=== PATIENT | female | born 1990 | race Caucasian/White ===

== ENCOUNTER → 2017-04-30 | Outpatient (REF) | payer MEDICAID ==
[2017-04-30 14:07] LABS: APPEARANCE, URINE CLEAR (CLEAR); BACTERIA, URINE AUTO NEGATIVE (NEGATIVE); BILIRUBIN, URINE AUTO NEGATIVE (NEGATIVE); BLOOD, URINE BLOOD NEGATIVE (NEGATIVE); COLOR, URINE YELLOW (YELLOW); GLUCOSE, URINE (UA) AUTO NEGATIVE (NEGATIVE); KETONE, URINE AUTO NEGATIVE (NEGATIVE); LEUKOCYTE ESTERASE, URINE AUTO NEGATIVE (NEGATIVE); MUCUS, URINE SMALL (NEGATIVE); NITRITE, URINE AUTO NEGATIVE (NEGATIVE); PROTEIN, URINE AUTO NEGATIVE (NEGATIVE); RBC, URINE AUTO 0 /HPF (0-3); SQUAMOUS EPITHELIAL CELL UR AU 1 /HPF (0-6); UROBILINOGEN, URINE AUTO 0.2 mg/dL (0.0-2.0); WBC, URINE AUTO 0 /HPF (0-3)
== END ==
LOC: M LAB REF 13:46
DX: N39.0 Urinary tract infection, site not specified (principal)

== ENCOUNTER 2017-07-01 21:03 | Emergency (ER) | payer OTHER, MEDICAID ==
[2017-07-02] MEDS ORDERED: ISOVUE-370 76% 100ML VIAL (Q9967) As Ordered (00:50)
[2017-07-02] MEDS: ONDANSETRON 4MG/2ML VIAL (J2405) IV (00:53)
[2017-07-02 00:54] LABS: BASO % 0.5 % (0.0-1.0); EOS # 0.3 10^3/uL (0.0-0.50); HEMATOCRIT 42.6 % (36.0-47.0); HEMOGLOBIN 14.2 g/dl (12.0-15.5); IMMATURE GRANULOCYTE % 0.4 % (0-3.0); LYMPH # 2.5 10^3/uL (1.5-6.5); LYMPH % 29.5 % (24.0-44.0); MEAN CORPUSCULAR HEMOGLOBIN 30.5 pg (27.0-33.0); MEAN CORPUSCULAR HGB CONC 33.3 g/dl (32.0-36.5); MEAN CORPUSCULAR VOLUME 91.4 fl (80.0-96.0); MONO % 11.1 % (0.0-5.0); NEUTROPHILS # 4.7 10^3/uL (1.8-7.7); NEUTROPHILS % 54.5 % (36.0-66.0); PLATELET COUNT, AUTOMATED 311 10^3/uL (150-450); RED BLOOD COUNT 4.66 10^6/uL (4.00-5.40); RED CELL DISTRIBUTION WIDTH 12.1 % (11.5-14.5); WHITE BLOOD COUNT 8.6 10^3/uL (4.0-10.0)
[2017-07-02] MEDS: MORPHINE 4 MG/ML 1ML VIAL/SYRINGE (J2270) IV ×2 (00:54→02:12)
[2017-07-02 01:08] LABS: INR 0.85; PROTHROMBIN TIME 11.7 SECONDS (12.4-14.5)
[2017-07-02 01:41] LABS: ALBUMIN 3.8 GM/DL (3.2-5.2); ALBUMIN/GLOBULIN RATIO 0.93 (1.00-1.93); ALKALINE PHOSPHATASE 70 U/L (45-117); ALT/SGPT 16 U/L (12-78); ANION GAP 5 MEQ/L (8-16); AST/SGOT 15 U/L (7-37); BILIRUBIN,DIRECT < 0.1 MG/DL (0.0-0.2); BILIRUBIN,TOTAL 0.3 MG/DL (0.2-1.0); BLOOD UREA NITROGEN 13 MG/DL (7-18); CALCIUM LEVEL 8.8 MG/DL (8.5-10.1); CARBON DIOXIDE LEVEL 28 MEQ/L (21-32); CHLORIDE LEVEL 107 MEQ/L (98-107); CREATININE FOR GFR 0.82 MG/DL (0.55-1.30); GLOMERULAR FILTRATION RATE > 60.0 (>60); GLUCOSE, FASTING 97 MG/DL (70-100); LIPASE 109 U/L (73-393); POTASSIUM SERUM 4.3 MEQ/L (3.5-5.1); SODIUM LEVEL 140 MEQ/L (136-145); TOTAL PROTEIN 7.9 GM/DL (6.4-8.2)
[2017-07-02] MEDS: NORCO 5/325MG TABLET (BULK FOR ED) PO (03:30)
== END 2017-07-02 03:51 | disposition home or self-care (01) ==
LOC: M ED 21:03
DX: S20.229A Contusion of unspecified back wall of thorax, initial encounter (principal); R10.812 Left upper quadrant abdominal tenderness; W10.8XXA Fall (on) (from) other stairs and steps, initial encounter; Y92.89 Other specified places as the place of occurrence of the external cause; Z79.899 Other long term (current) drug therapy
CPT/HCPCS: J2270

== ENCOUNTER → 2017-07-18 | Outpatient (CLI) | payer MEDICAID | LOC: M OUTALCOH 11:01 | DX: Z13.9 Encounter for screening, unspecified (principal); F11.10 Opioid abuse, uncomplicated ==

== ENCOUNTER 2017-07-31 10:30 | Outpatient (RCR) | payer MEDICAID | END 2017-08-01 | LOC: M OUTALCOH 10:30 | DX: Z03.89 Encounter for observation for other suspected diseases and conditions ruled out (principal) ==

== ENCOUNTER → 2017-09-10 | Outpatient (REF) | payer MEDICAID ==
[2017-09-10 17:49] LABS: APPEARANCE, URINE CLEAR (CLEAR); BACTERIA, URINE AUTO NEGATIVE (NEGATIVE); BILIRUBIN, URINE AUTO NEGATIVE (NEGATIVE); BLOOD, URINE BLOOD NEGATIVE (NEGATIVE); COLOR, URINE STRAW (YELLOW); GLUCOSE, URINE (UA) AUTO NEGATIVE (NEGATIVE); KETONE, URINE AUTO NEGATIVE (NEGATIVE); LEUKOCYTE ESTERASE, URINE AUTO NEGATIVE (NEGATIVE); NITRITE, URINE AUTO NEGATIVE (NEGATIVE); PROTEIN, URINE AUTO NEGATIVE (NEGATIVE); RBC, URINE AUTO 0 /HPF (0-3); SPECIFIC GRAVITY URINE AUTO 1.015 (1.002-1.035); SQUAMOUS EPITHELIAL CELL UR AU 0 /HPF (0-6); UROBILINOGEN, URINE AUTO 0.2 mg/dL (0.0-2.0); WBC, URINE AUTO 0 /HPF (0-3)
== END ==
LOC: M LAB REF 17:19
DX: N39.0 Urinary tract infection, site not specified (principal)
CPT/HCPCS: 81001

== ENCOUNTER → 2017-10-11 | Outpatient (REF) | payer MEDICAID ==
[2017-10-11 20:58] LABS: APPEARANCE, URINE CLEAR (CLEAR); BACTERIA, URINE AUTO NEGATIVE (NEGATIVE); BILIRUBIN, URINE AUTO NEGATIVE (NEGATIVE); BLOOD, URINE BLOOD NEGATIVE (NEGATIVE); COLOR, URINE YELLOW (YELLOW); GLUCOSE, URINE (UA) AUTO NEGATIVE (NEGATIVE); KETONE, URINE AUTO NEGATIVE (NEGATIVE); LEUKOCYTE ESTERASE, URINE AUTO NEGATIVE (NEGATIVE); NITRITE, URINE AUTO NEGATIVE (NEGATIVE); PROTEIN, URINE AUTO NEGATIVE (NEGATIVE); RBC, URINE AUTO 3 /HPF (0-3); SPECIFIC GRAVITY URINE AUTO 1.024 (1.002-1.035); SQUAMOUS EPITHELIAL CELL UR AU 0 /HPF (0-6); UROBILINOGEN, URINE AUTO 0.2 mg/dL (0.0-2.0); WBC, URINE AUTO 1 /HPF (0-3)
== END ==
LOC: M LAB REF 17:03
DX: N39.0 Urinary tract infection, site not specified (principal)

== ENCOUNTER → 2018-01-08 | Outpatient (REF) | payer MEDICAID ==
[2018-01-08 17:54] LABS: AMORPHOUS SEDIMENT MODERATE (NEGATIVE); APPEARANCE, URINE HAZY (CLEAR); BACTERIA, URINE AUTO NEGATIVE (NEGATIVE); BILIRUBIN, URINE AUTO NEGATIVE (NEGATIVE); BLOOD, URINE BLOOD NEGATIVE (NEGATIVE); COLOR, URINE YELLOW (YELLOW); GLUCOSE, URINE (UA) AUTO NEGATIVE (NEGATIVE); KETONE, URINE AUTO NEGATIVE (NEGATIVE); LEUKOCYTE ESTERASE, URINE AUTO NEGATIVE (NEGATIVE); NITRITE, URINE AUTO NEGATIVE (NEGATIVE); PROTEIN, URINE AUTO NEGATIVE (NEGATIVE); RBC, URINE AUTO 2 /HPF (0-3); SPECIFIC GRAVITY URINE AUTO 1.015 (1.002-1.035); SQUAMOUS EPITHELIAL CELL UR AU 0 /HPF (0-6); UROBILINOGEN, URINE AUTO 0.2 mg/dL (0.0-2.0); WBC, URINE AUTO 1 /HPF (0-3)
== END ==
LOC: M LAB REF 16:51
DX: N39.0 Urinary tract infection, site not specified (principal)

== ENCOUNTER → 2018-08-04 | Outpatient (REF) | payer MEDICAID ==
[~2018-08-04] MED LIST: CETI10TA; DOCU5LIQ PO; FLEX5TAB3 PO; FLIN1CHW3 PO; GABA-845; IBUP-1114 PO; IBUP600T26 PO; MAPA500T17 PO; MAPA500T2 PO; MEDR150I10; MOM30SS PO; NAPR-837 PO; PERC5TAB12 PO; VICO5TAB PO; VITAPRTA PO; [UNRECOGNIZED DRUG - CODE]
[2018-08-05 00:16] LABS: CHLAMYDIA DNA AMPLIFICATION NEGATIVE (NEGATIVE); GC DNA AMPLIFICATION NEGATIVE (NEGATIVE)
== END ==
LOC: M LAB REF 10:10
PROVIDERS: ATTEND Physician Assistant Medical
DX: R30.0 Dysuria (principal)

== ENCOUNTER → 2018-11-04 | Outpatient (REF) | payer OTHER ==
[2018-11-04 17:05] LABS: URINE PREG TEST NEGATIVE (NEGATIVE)
[2018-11-04 19:56] LABS: CHLAMYDIA DNA AMPLIFICATION NEGATIVE (NEGATIVE); GC DNA AMPLIFICATION NEGATIVE (NEGATIVE)
== END ==
LOC: M LAB REF 16:22
PROVIDERS: ATTEND Physician Assistant Medical
DX: Z34.80 Encounter for supervision of other normal pregnancy, unspecified trimester (principal)

== ENCOUNTER → 2018-12-13 | Outpatient (REF) | payer OTHER ==
[2018-12-17 14:03] LABS: APPEARANCE, URINE CLEAR (CLEAR); BILIRUBIN, URINE AUTO NEGATIVE (NEGATIVE); COLOR, URINE YELLOW (YELLOW); GLUCOSE, URINE (UA) AUTO NEGATIVE (NEGATIVE); KETONE, URINE AUTO NEGATIVE (NEGATIVE); NITRITE, URINE AUTO NEGATIVE (NEGATIVE); PROTEIN, URINE AUTO NEGATIVE (NEGATIVE); UROBILINOGEN, URINE AUTO 0.2 mg/dL (0.0-2.0)
[2018-12-17 14:04] LABS: BACTERIA, URINE AUTO N (NEGATIVE); BLOOD, URINE BLOOD NEGATIVE (NEGATIVE); LEUKOCYTE ESTERASE, URINE AUTO NEGATIVE (NEGATIVE); MUCUS, URINE SMALL (NEGATIVE); RBC, URINE AUTO 1 /HPF (0-3); SQUAMOUS EPITHELIAL CELL UR AU 1 /HPF (0-6); WBC, URINE AUTO 0 /HPF (0-3)
[2018-12-17 14:44] LABS: CHLAMYDIA DNA AMPLIFICATION NEGATIVE (NEGATIVE); GC DNA AMPLIFICATION NEGATIVE (NEGATIVE)
== END ==
LOC: M LAB REF 13:46
PROVIDERS: ATTEND Physician Assistant Medical
DX: N39.0 Urinary tract infection, site not specified (principal)

== ENCOUNTER → 2019-03-11 | Outpatient (REF) | payer OTHER ==
[2019-03-11 13:54] LABS: BASO # 0.1 10^3/uL (0.0-0.2); BASO % 0.9 % (0.0-1.0); EOS # 0.2 10^3/uL (0.0-0.5); EOS % 3.6 % (0.0-3.0); HEMATOCRIT 42.9 % (36.0-47.0); HEMOGLOBIN 13.9 g/dl (12.0-15.5); LYMPH # 1.8 10^3/uL (1.5-5.0); LYMPH % 32.7 % (24.0-44.0); MEAN CORPUSCULAR HEMOGLOBIN 30.5 pg (27.0-33.0); MEAN CORPUSCULAR HGB CONC 32.4 g/dl (32.0-36.5); MEAN CORPUSCULAR VOLUME 94.3 fl (80.0-96.0); MONO # 0.5 10^3/uL (0.0-0.8); MONO % 9.4 % (0.0-5.0); NEUTROPHILS # 2.9 10^3/uL (1.5-8.5); NEUTROPHILS % 53.2 % (36.0-66.0); PLATELET COUNT, AUTOMATED 287 10^3/uL (150-450); RED BLOOD COUNT 4.55 10^6/uL (4.00-5.40); WHITE BLOOD COUNT 5.5 10^3/uL (4.0-10.0)
[2019-03-11 14:14] LABS: ALBUMIN 3.9 GM/DL (3.2-5.2); ALT/SGPT 14 U/L (12-78); BILIRUBIN,TOTAL 0.3 MG/DL (0.2-1.0); BLOOD UREA NITROGEN 11 MG/DL (7-18); CALCIUM LEVEL 9.2 MG/DL (8.5-10.1); CARBON DIOXIDE LEVEL 29 MEQ/L (21-32); CHLORIDE LEVEL 104 MEQ/L (98-107); CREATININE FOR GFR 0.88 MG/DL (0.55-1.30); FOLATE 12.7 NG/ML; GLOMERULAR FILTRATION RATE > 60.0 (>60); GLUCOSE, FASTING 110 MG/DL (70-100); POTASSIUM SERUM 4.3 MEQ/L (3.5-5.1); RHEUMATOID FACTOR QUANT < 10.0 IU/ML (<15.0); SODIUM LEVEL 139 MEQ/L (136-145); TOTAL 25(OH) VITAMIN D 45.8 NG/ML (30.0-100.0); TOTAL PROTEIN 7.4 GM/DL (6.4-8.2); VITAMIN B12 LEVEL 1024 PG/ML
[2019-03-11 14:26] LABS: ERYTHROCYTE SEDIMENTATION RATE 4 mm/hr (0-20)
[2019-03-11 14:39] LABS: HEMOGLOBIN A1c 5.2 %
== END ==
LOC: M LAB REF 12:56 → M LABNEURO 12:56
PROVIDERS: ATTEND Psychiatry & Neurology Neurology
DX: G62.9 Polyneuropathy, unspecified (principal); R51 Headache

== ENCOUNTER → 2019-03-18 | Outpatient (REF) | payer OTHER ==
[2019-03-18 13:52] LABS: URINE PREG TEST NEGATIVE (NEGATIVE)
[2019-03-18 14:07] LABS: APPEARANCE, URINE CLEAR (CLEAR); BACTERIA, URINE AUTO NEGATIVE (NEGATIVE); BILIRUBIN, URINE AUTO NEGATIVE (NEGATIVE); BLOOD, URINE BLOOD NEGATIVE (NEGATIVE); COLOR, URINE YELLOW (YELLOW); GLUCOSE, URINE (UA) AUTO NEGATIVE (NEGATIVE); KETONE, URINE AUTO NEGATIVE (NEGATIVE); LEUKOCYTE ESTERASE, URINE AUTO NEGATIVE (NEGATIVE); MUCUS, URINE SMALL (NEGATIVE); NITRITE, URINE AUTO NEGATIVE (NEGATIVE); PROTEIN, URINE AUTO NEGATIVE (NEGATIVE); RBC, URINE AUTO 1 /HPF (0-3); SPECIFIC GRAVITY URINE AUTO 1.017 (1.002-1.035); SQUAMOUS EPITHELIAL CELL UR AU 0 /HPF (0-6); UROBILINOGEN, URINE AUTO 0.2 mg/dL (0.0-2.0); WBC, URINE AUTO 0 /HPF (0-3)
== END ==
LOC: M LAB REF 13:09
PROVIDERS: ATTEND Physician Assistant
DX: N39.0 Urinary tract infection, site not specified (principal)

== ENCOUNTER → 2019-03-24 | Outpatient (REF) | payer OTHER ==
[2019-03-24 16:02] LABS: CHLAMYDIA DNA AMPLIFICATION NEGATIVE (NEGATIVE); GC DNA AMPLIFICATION NEGATIVE (NEGATIVE)
== END ==
LOC: M LAB REF 14:25
PROVIDERS: ATTEND Physician Assistant Medical
DX: N89.8 Other specified noninflammatory disorders of vagina (principal)

== ENCOUNTER → 2019-04-28 | Outpatient (CLI) | payer OTHER | LOC: M PLALAB 12:52 | PROVIDERS: ATTEND Physician Assistant | DX: Z00.00 Encounter for general adult medical examination without abnormal findings (principal); R63.5 Abnormal weight gain; B37.9 Candidiasis, unspecified; Z20.2 Contact with and (suspected) exposure to infections with a predominantly sexual mode of transmission ==

== ENCOUNTER → 2019-04-28 | Outpatient (REF) | payer OTHER ==
[2019-04-28 18:30] LABS: APPEARANCE, URINE CLEAR (CLEAR); BACTERIA, URINE AUTO NEGATIVE (NEGATIVE); BILIRUBIN, URINE AUTO NEGATIVE (NEGATIVE); BLOOD, URINE BLOOD 2+ (NEGATIVE); COLOR, URINE YELLOW (YELLOW); GLUCOSE, URINE (UA) AUTO NEGATIVE (NEGATIVE); KETONE, URINE AUTO NEGATIVE (NEGATIVE); LEUKOCYTE ESTERASE, URINE AUTO NEGATIVE (NEGATIVE); MUCUS, URINE SMALL (NEGATIVE); NITRITE, URINE AUTO NEGATIVE (NEGATIVE); PROTEIN, URINE AUTO NEGATIVE (NEGATIVE); RBC, URINE AUTO 21 /HPF (0-3); SPECIFIC GRAVITY URINE AUTO 1.016 (1.002-1.035); SQUAMOUS EPITHELIAL CELL UR AU 1 /HPF (0-6); UROBILINOGEN, URINE AUTO 0.2 mg/dL (0.0-2.0); WBC, URINE AUTO 0 /HPF (0-3)
[2019-04-28 19:11] LABS: ALT/SGPT 18 U/L (12-78); BILIRUBIN,TOTAL 0.3 MG/DL (0.2-1.0); BLOOD UREA NITROGEN 12 MG/DL (7-18); CALCIUM LEVEL 9.1 MG/DL (8.5-10.1); CARBON DIOXIDE LEVEL 30 MEQ/L (21-32); CHLORIDE LEVEL 102 MEQ/L (98-107); CREATININE FOR GFR 0.73 MG/DL (0.55-1.30); FREE T4 0.95 NG/DL (0.76-1.46); GLOMERULAR FILTRATION RATE > 60.0 (>60); GLUCOSE, FASTING 88 MG/DL (70-100); POTASSIUM SERUM 4.3 MEQ/L (3.5-5.1); SODIUM LEVEL 137 MEQ/L (136-145); THYROID STIMULATING HORMONE 0.896 uIU/ML (0.358-3.740); TOTAL 25(OH) VITAMIN D 47.2 NG/ML (30.0-100.0)
[2019-04-28 19:26] LABS: HEMOGLOBIN A1c 5.5 %
[2019-04-29 05:05] LABS: CHLAMYDIA DNA AMPLIFICATION NEGATIVE (NEGATIVE); GC DNA AMPLIFICATION NEGATIVE (NEGATIVE)
[2019-04-29 11:48] LABS: HIV 1&2 SCREEN CENTAUR NEGATIVE (NEGATIVE)
[2019-05-01 00:07] LABS: HSV IgM TYPES 1&2 1.27 Ratio (0.00-0.90)
== END ==
LOC: M SFHCPLAZ 12:21
PROVIDERS: ATTEND Physician Assistant
DX: Z00.00 Encounter for general adult medical examination without abnormal findings (principal); R63.5 Abnormal weight gain; B37.9 Candidiasis, unspecified; Z20.2 Contact with and (suspected) exposure to infections with a predominantly sexual mode of transmission

== ENCOUNTER → 2019-05-15 | Outpatient (REF) | payer OTHER ==
[2019-05-15 16:55] LABS: APPEARANCE, URINE CLEAR (CLEAR); BILIRUBIN, URINE AUTO NEGATIVE (NEGATIVE); BLOOD, URINE BLOOD NEGATIVE (NEGATIVE); COLOR, URINE YELLOW (YELLOW); GLUCOSE, URINE (UA) AUTO NEGATIVE (NEGATIVE); KETONE, URINE AUTO NEGATIVE (NEGATIVE); LEUKOCYTE ESTERASE, URINE AUTO NEGATIVE (NEGATIVE); NITRITE, URINE AUTO NEGATIVE (NEGATIVE); PROTEIN, URINE AUTO NEGATIVE (NEGATIVE); SPECIFIC GRAVITY URINE AUTO 1.023 (1.002-1.035)
[2019-05-15 16:57] LABS: BACTERIA, URINE AUTO NEGATIVE (NEGATIVE); MUCUS, URINE SMALL (NEGATIVE); RBC, URINE AUTO 2 /HPF (0-3); SQUAMOUS EPITHELIAL CELL UR AU 0 /HPF (0-6); WBC, URINE AUTO 0 /HPF (0-3)
== END ==
LOC: M LAB REF 16:34
PROVIDERS: ATTEND Physician Assistant Medical
DX: N39.0 Urinary tract infection, site not specified (principal)

== ENCOUNTER → 2019-06-11 | Outpatient (REF) | payer OTHER | LOC: M LAB REF 12:10 | PROVIDERS: ATTEND Physician Assistant | DX: N39.0 Urinary tract infection, site not specified (principal); N91.2 Amenorrhea, unspecified ==

== ENCOUNTER → 2019-07-16 | Outpatient (REF) | payer OTHER | LOC: M LAB REF 13:44 | PROVIDERS: ATTEND Physician Assistant | DX: R30.0 Dysuria (principal) ==

== ENCOUNTER → 2019-07-22 | Outpatient (REF) | payer OTHER ==
[2019-07-22 20:47] LABS: CHLAMYDIA DNA AMPLIFICATION NEGATIVE (NEGATIVE); GC DNA AMPLIFICATION NEGATIVE (NEGATIVE)
== END ==
LOC: M SFHCWAGY 17:27
PROVIDERS: ATTEND Advanced Practice Midwife
DX: Z12.4 Encounter for screening for malignant neoplasm of cervix (principal); Z11.3 Encounter for screening for infections with a predominantly sexual mode of transmission

== ENCOUNTER → 2019-07-23 | Outpatient (CLI) | payer OTHER ==
--- NOTE | 2019-07-24 02:30 | REP ---
Clinical: Pelvic pain. . Technique: Transabdominal pelvic ultrasound with color flow evaluation of the ovaries. Findings: Bladder is partially collapsed and under distended Normal anteverted uterus measures 8.8 x 4.7 x 5.2 cm . The endometrial complex measures 8.6 mm thickness. No discrete uterine or endometrial abnormalities are appreciated. Bilateral ovaries are normal in appearance and vascularity without evidence for torsion. Right ovary measures 2.5 x 1.1 x 2.5 cm ; Left ovary measures 3.6 x 1.7 x 2.8 cm. No pelvic fluid or adnexal mass lesion . Impression: 1. normal pelvic ultrasound
== END ==
LOC: M WHC 11:00
PROVIDERS: ATTEND Advanced Practice Midwife
DX: R10.2 Pelvic and perineal pain (principal)

== ENCOUNTER → 2019-08-26 | Outpatient (CLI) | payer OTHER ==
--- NOTE | 2019-08-28 01:16 | ECWPNPC ---
PATIENT NAME: ANTOLIN ADAMSON : 1990 GENDER: FEMALE VISIT DATE: 08/26/2019 DISCHARGE DATE: 08/26/19 1120 VISIT LOCKED DATE TIME: PHYSICIAN: ESTELLE JARAMILLO RESOURCE: ESTELLE JARAMILLO REASON FOR APPOINTMENT 1. NECK HISTORY OF PRESENT ILLNESS DEPRESSION SCREENING: PHQ-2 (2015 EDITION) LITTLE INTEREST OR PLEASURE IN DOING THINGS?NOT AT ALL FEELING DOWN, DEPRESSED, OR HOPELESS?NOT AT ALL TOTAL SCORE0 GENERAL: -28-YEAR-OLD FEMALE IN FOR INITIAL PAIN CONSULT. SHE RATES HER PAIN CURRENTLY AT A 10 OUT OF 10 AND DESCRIBES IT CONTINUOUS AND SHARP. THE PAIN IS LOCATED IN THE FACE, HEAD, NECK, RIGHT SHOULDER, AND RIGHT UPPER EXTREMITY. PATIENT DOES ADMIT TO USE OF GABAPENTIN TO HELP MANAGE HER SYMPTOMS HOWEVER SHE EXPERIENCED WEIGHT GAIN WITH THIS AND TAPERED HERSELF OFF THIS MEDICATION. SHE HAS A REFERRAL IN FOR RHEUMATOLOGY HOWEVER SHE HAS NOT MADE AN APPOINTMENT YET. SHE ALSO HAS A REFERRAL IN FOR PHYSICAL THERAPY IN HAS YET TO MAKE AN APPOINTMENT FOR THIS. FALL RISK SCREENING: SCREENING :NO FALLS REPORTED IN THE LAST YEAR PAIN SCREENING: PATIENT HAS A COMPLAINT OF ACUTE OR CHRONIC PAIN :YES LOCATION OF PAIN:FACE, HEAD, NECK, RIGHT SHOULDER, UPPER BACK, MID BACK, LOW BACK, LEFT HIP, RIGHT HIP, LEG(S), THIGH(S), FEET INTENSITY OF PAIN (SCALE OF 1 TO 10):10 WHAT DOES YOUR PAIN FEEL LIKE:CONTINOUS, SHARP PAIN IS INCREASED BY:PROLONGED STANDING PAIN IS DECREASED BY: CHANGING POSITION MAY TAKE THE EDGE OFF NURSING NOTE: - - -. PAIN CENTER INTAKE QUESTIONS: DO YOU HAVE A HISTORY OF MRSA? :YES HAS HAD MRSA IN THE PAST, WITH REOCCURENCES, BUT NOT PRESENTLY DO YOU TAKE A BLOOD THINNERS? :NO DO YOU HAVE ANY BLEEDING DISORDERS? :NO ANY NEW NUMBNESS OR WEAKNESS IN YOUR LEGS OR ARMS? :YES "RESTLESS ARMS" ANY PACEMAKER,DEFIBRILLATOR, OR DORSAL COLUMN STIMULATOR? :NO DO YOU HAVE ANY RASHES OR OPEN SORES? :NO ARE YOU ALLERGIC TO IV DYE? :NO ARE YOU DIABETIC? :NO ANY NEW PROBLEMS WITH YOUR MEDICATIONS? :NO HAVE YOU RECEIVED A VACCINE IN THE PAST 30 DAYS? :NO DO YOU PLAN TO RECEIVE A VACCINE IN THE NEXT 21 DAYS? :NO DO YOU NEED ANY PRESCRIPTION? :NO DO YOU TAKE ANY IMMUNOSUPPRESSIVE MEDICATIONS? :NO CURRENT MEDICATIONS TAKING FLUTICASONE PROPIONATE 50 MCG/ACT SUSPENSION INSTILL TWO SPRAYS IN EACH NOSTRIL ONCE DAILY NASAL TAKING MUPIROCIN 2 % OINTMENT 1 APPLICATION EXTERNALLY THREE TIMES A DAY TAKING TRIAMCINOLONE ACETONIDE 0.1 % CREAM APPLY TOPICALLY TO THE AFFECTED AREA TWICE DAILY EXTERNAL TWICE A DAY TAKING CETIRIZINE HCL 10 MG TABLET 1 TABLET ORALLY ONCE A DAY TAKING TIZANIDINE HCL 2 MG TABLET 1 TABLET NEEDED ORALLY TWICE A DAY TAKING DULOXETINE HCL 60 MG CAPSULE DELAYED RELEASE PARTICLES 1 CAPSULE ORALLY ONCE A DAY TAKING VENTOLIN HFA 108 (90 BASE) MCG/ACT AEROSOL SOLUTION INHALE TWO PUFFS BY MOUTH FOUR TIMES DAILY NEEDED INHALATION TAKING ONDANSETRON HCL 4 MG TABLET 1 TABLET ORALLY ONCE A DAY NEEDED FOR NAUSEA TAKING TRAZODONE HCL 50 MG TABLET 1 TABLET AT BEDTIME NEEDED ORALLY ONCE A DAY TAKING CYMBALTA 60 MG CAPSULE DELAYED RELEASE PARTICLES 1 CAPSULE ORALLY ONCE A DAY TAKING DIFLUCAN 150 MG TABLET 1 TABLET ORALLY ONCE, MAY REPEAT IN 7 DAYS IF NEEDED TAKING PROMETHAZINE HCL 25 MG TABLET 1 TABLET NEEDED ORALLY EVERY 12 HRS NOT-TAKING GABAPENTIN 400 MG CAPSULE TAKE ONE CAPSULE BY MOUTH THREE TIMES DAILY ORAL NOT-TAKING NORTRIPTYLINE HCL 10 MG CAPSULE TAKE ONE TABLET BY MOUTH EVERY NIGHT ORAL NOT-TAKING FLUCONAZOLE 150 MG TABLET 1 TABLET ORALLY ONE TABLET NOW AND THEN ONE TABLET IN 3 DAYS NOT-TAKING METRONIDAZOLE 500 MG TABLET 1 TABLET ORALLY TWICE A DAY NOT-TAKING DULOXETINE HCL 30 MG CAPSULE DELAYED RELEASE PARTICLES 1 CAPSULE ORALLY ONCE A DAY MEDICATION LIST REVIEWED AND RECONCILED WITH THE PATIENT PAST MEDICAL HISTORY MRSA INFECTION NEUROPATHY ANXIETY ASTHMA ARTHRITIS ? FIBROMYALGIA- DIAGNOSIS PENDING FROM NEUROLOGY 05/2019 INSOMNIA ALLERGIES LATEX (FOR ALLERGY USE ONLY): RASH - ALLERGY BANANAS, ORANGES, STRAWBERRIES, RED SAUCES, CUCUMBE: RASH - ALLERGY SURGICAL HISTORY D&C 2010 2019 CARPAL TUNNEL RELEASE FAMILY HISTORY FATHER: ALIVE, DIAGNOSED WITH DIABETES MOTHER: ALIVE MATERNAL GRAND FATHER: , CANCER? 2 SISTER(S) . 3 SON(S) , 1 DAUGHTER(S) . MATERNAL AUNT- SKIN CANCER SON-BORN WITH GASTROSCHISIS. SOCIAL HISTORY GENERAL: TOBACCO USE ARE YOU A:NONSMOKER LATEX QUESTIONNAIRE LATEX ALLERGY : HAVE YOU EVER DEVELOPED ANY TYPE OF REACTION AFTER HANDLING LATEX PRODUCTS SUCH RUBBER GLOVES, CONDOMS, DIAPHRAGMS, BALLOONS, SOCKS, OR UNDERWEAR?YES LATEX ALLERGY : HAVE YOU EVER DEVELOPED ANY TYPE OF REACTION DURING OR AFTER DENTAL APPOINTMENT, VAGINAL/RECTAL EXAMINATION, SURGICAL PROCEDURE, OR ANY OTHER EXPOSURE?NO - PLEASE INDICATE :CONDOMS DATE ASKED : 08/11/2019 LATEX RISK : HAVE YOU EVER HAD ANY DIFFICULTY BREATHING OR HIVES AFTER EATING OR HANDLING ANY FRUITS, OR VEGETABLES; SUCH KIWI, BANANAS, STONE FRUITS, OR CHESTNUTSYES - PLEASE INDICATE : KIWI, BANANAS LATEX RISK : DO YOU HAVE A PREVIOUS PERSONAL HISTORY OF MORE THAN NINE SURGERIES, SPINA BIFIDA, OR REPEATED CATHERIZATIONS? NO LATEX RISK : ARE YOU FREQUENTLY EXPOSED TO LATEX PRODUCTS IN YOUR OCCUPATION?NO CAFFEINE CAFFEINE USE?YES 1-2 CUPS/DAY SEXUAL HX HAD SEX IN THE LAST 12 MONTHS (VAGINAL, ORAL, OR ANAL)?YES WITHMEN ONLY USE PROTECTION?NO LMP:04/28/2019 HAVE YOU EVER HAD AN STD?YES GC?YES CHLAMYDIA?YES HIV / HEP-C SCREENING HIV TEST OFFERED TO PATIENT:YES DATE OFFERED:04/28/2019 TEST ACCEPTED:NO HEP-C TEST OFFERED TO PATIENT:YES DATE OFFERED:04/28/2019 REASON:PATIENT DECLINED TEST ACCEPTED:NO REASON:PATIENT DECLINED BROCHURE PROVIDED TO PATIENTNO CHRISTIAN CHRISTIAN NO [employer]VENT BELIEFS THAT WOULD IMPACT HEALTH CARE. LANGUAGE LANGUAGES SPOKEN:JAPANESE EDUCATION LEVEL OF EDUCATION:COLLEGE LEARNING BARRIERS / SPECIAL NEEDS CHANGE FROM LAST VISIT?NO BARRIERS TO LEARNING?NO HEARING IMPAIRED?NO VISION IMPAIRED?NO COGNITIVELY IMPAIRED?NO READINESS TO LEARN?YES LEARNING PREFERENCES?YES :DEMONSTRATION/VERBAL INSTRUCTION LEARNING CAPABILITIES PRESENT?YES EMOTIONAL BARRIERS?NO SPECIAL DEVICES?NO EXERCISE EQUIPMENT SPECIALIST NEEDED?NO OCCUPATION: OIL FIELD TECHNICIAN. DIET: SIMILAR TO KETO. LESS THAN 2000 CALORIES A DAY. LITTLE SUGAR. EXERCISE: NO REGULAR EXERCISE. MARITAL STATUS: .. OTHERS AT HOME: 4 CHILDREN. PAIN CLINIC PFS, CLERGY, PUBLIC HEALTH REFERRALS HAS THE PATIENT BEEN EDUCATED REGARDING HIS/HER PLAN OF CARE?YES HAS THE PATIENT BEEN EDUCATED REGARDING PAIN, THE RISK FOR PAIN, THE IMPORTANCE OF EFFECTIVE PAIN MANAGEMENT, AND THE PAIN ASSESSMENT PROCESS?YES ADVANCE DIRECTIVE ADVANCE DIRECTIVE DISCUSSED WITH PATIENT:YES PT STATES THAT SHE HAS NO HCP AT THIS TIME, DECLINES ASSISTANCE WITH PAPERWORK HOSPITALIZATION/MAJOR DIAGNOSTIC PROCEDURE CHILDBIRTH REVIEW OF SYSTEMS CONSTITUTIONAL: ANY RECENT FEVER NO . CHILLS NO . WEIGHT CHANGE OF UNKNOWN REASONS NO . MUSCULOSKELETAL: ANY UNUSUAL JOINT PAIN OR SWELLING NOT MENTIONED NO . SYSTEMIC LUPUS NO . ANY NEUROMUSCULAR DISORDER NOT MENTIONED NO . LYME DISEASE NO . GASTROENTEROLOGY: ANY NEW CHANGE IN BOWEL CONTROL? NO . HISTORY OF LIVER DISORDER NOT MENTIONED NO . HISTORY OF UNUSUAL ABDOMINAL PAIN OR CRAMPING NOT MENTIONED NO . NO CONSTIPATION. GENITOURINARY: ANY NEW CHANGE IN BLADDER CONTROL? NO . ANY RENAL/KIDNEY CONDITON NOT MENTIONED NO . NEUROLOGY: HISTORY OF TBI NOT MENTIONED NO . OTHER NEW NUMBNESS OR PAIN PATTERNS NOT MENTIONED NO . NEW ONSET DIZZINESS OR NEUROLOGICAL CHANGES NOT MENTIONED NO . HISTORY OF SEVERE HEADACHES NOT MENTIONED NO . HISTORY OF STROKE OR NEUROLOGICAL DISORDER NOT MENTIONED NO . CARDIOLOGY: HEART SURGERY NO . CONGESTIVE HEART FAILURE/FLUID OVERLOAD NOT MENTIONED NO . HISTORY OF CHEST PAIN,IRREGULAR HEART BEAT NOT MENTIONED NO . RESPIRATORY: SHORTNESS OF BREATH ON EXERTION, WHEEZES, UNUSUAL COUGH NOT MENTIONED NO . ENDOCRINOLOGY: ADRENAL GLAND OR THYROID DISORDERS NOT MENTIONED NO . UNUSUAL URINATION, DIZZINESS OR LETHARGY NOT MENTIONED NO . VITAL SIGNS WT 208.6 LBS, HT 68 IN, BMI 31.71 INDEX, BP 128/59 MM HG, HR 65 /MIN, RR 18 /MIN, TEMP 97.0 F, OXYGEN SAT % 99%, SAFE IN ENV? (Y/N) YES, NA INITIALS SC 10:22, REVIEWED BY: MRECY. EXAMINATION GENERAL EXAMINATION: GENERALNO ACUTE DISTRESS, WELL NOURISHED AND HYDRATED. PSYCHAPPROPRIATE MOOD AND AFFECT . NECK:POINT TENDER ALONG CERVICAL SPINE AND RIGHT SHOULDER, SURROUNDING SKIN SHOWS NO ERYTHEMA, ECCHYMOSIS, INCREASED WARMTH, AND/OR SKIN ERUPTIONS NOTED. BANDS OF RESTRICTED TISSUE NOTED OVER TRIGGER POINTS . LUNGS:CLEAR TO AUSCULTATION BILATERALLY, NO WHEEZES, RHONCHI, RALES. HEART:NO MURMURS, REGULAR RATE AND RHYTHM. ASSESSMENTS FIBROMYALGIA - M79.7 (PRIMARY) TREATMENT FIBROMYALGIA START LYRICA CAPSULE, 75 MG, 1 CAPSULE, ORALLY, ONCE A DAY, 30 DAYS, 30 CLINICAL NOTES: 28-YEAR-OLD FEMALE IN FOR INITIAL PAIN CONSULT. GIVEN PRESENTING SYMPTOMS AND RESULTS OF PHYSICAL EXAMINATION RECOMMENDED LYRICA 75 MG DAILY WITH FOLLOW-UP IN ONE MONTH TO DETERMINE EFFICACY OF TREATMENT. PATIENT TO GET EDUCATION REGARDING TRIGGER POINT INJECTIONS SHE MAY POTENTIALLY HAVE THESE IN THE FUTURE. PATIENT HAS EXPRESSED UNDERSTANDING OF AND WAS IN AGREEMENT WITH TREATMENT PLAN. GIVEN TIME TO ASK QUESTIONS AND EXPRESS CONCERNS. PREVENTIVE MEDICINE PAIN CLINIC TEACHING: MEDICATIONS INFORMATIONAL HANDOUT FOR LYRICA PRINTED AND REVIEWED WITH PATIENT. PROCEDURE TEACHING PROCEDURE HANDOUT FOR TRIGGER POINT INJECTIONS PRINTED AND REVIEWED WITH PATIENT. LAS. PROCEDURE CODES FA211 ESTABILISHED PATIENT [facility] CHARGE DISPOSITION & COMMUNICATION FOLLOW UP 4 WEEKS (REASON: FIBROMYALGIA) ELECTRONICALLY SIGNED BY ANASTASIA YARBROUGH ON 08/27/2019 AT 08:02 AM EDT DISCLAIMER : THIS IS A VISIT SUMMARY EXTRACTED FROM THE [employer] CHART. IT IS NOT A COPY OF THE [employer] PROGRESS NOTE. MTDD
== END ==
LOC: M PAIN 10:30
PROVIDERS: ATTEND Family Medicine
DX: M79.7 Fibromyalgia (principal)

== ENCOUNTER → 2020-03-09 | Outpatient (REF) | payer OTHER | LOC: M LAB REF 12:34 | PROVIDERS: ATTEND Physician Assistant | DX: Z11.3 Encounter for screening for infections with a predominantly sexual mode of transmission (principal) ==

== ENCOUNTER → 2020-04-19 | Outpatient (REF) | payer OTHER ==
[2020-04-19 19:47] LABS: CHLAMYDIA DNA AMPLIFICATION NEGATIVE (NEGATIVE); GC DNA AMPLIFICATION NEGATIVE (NEGATIVE)
== END ==
LOC: M LAB REF 16:25
PROVIDERS: ATTEND Physician Assistant Medical
DX: Z11.3 Encounter for screening for infections with a predominantly sexual mode of transmission (principal)

== ENCOUNTER → 2020-05-16 | Outpatient (CLI) | payer MEDICAID | LOC: M OUTALCOH 09:43 | PROVIDERS: ATTEND Psychiatry & Neurology Psychiatry | DX: Z13.9 Encounter for screening, unspecified (principal) ==

== ENCOUNTER 2020-05-23 13:22 | Outpatient (RCR) | payer MEDICAID | END 2020-06-01 | LOC: M OUTALCOH 13:22 | PROVIDERS: ATTEND Psychiatry & Neurology Psychiatry | DX: Z03.89 Encounter for observation for other suspected diseases and conditions ruled out (principal) ==

== ENCOUNTER → 2020-06-28 | Outpatient (CLI) | payer OTHER ==
--- NOTE | 2020-06-30 01:28 | ECWPNPC ---
PATIENT NAME: ANTOLIN ADAMSON : 1990 GENDER: FEMALE VISIT DATE: 06/28/2020 DISCHARGE DATE: 06/28/20 1141 VISIT LOCKED DATE TIME: PHYSICIAN: ESTELLE JARAMILLO PHYSICIAN PAGER NO: ACTIVE RESOURCE: ESTELLE JARAMILLO REASON FOR APPOINTMENT 1. NECK HISTORY OF PRESENT ILLNESS DEPRESSION SCREENING: PHQ-2 (2015 EDITION) LITTLE INTEREST OR PLEASURE IN DOING THINGS?NOT AT ALL FEELING DOWN, DEPRESSED, OR HOPELESS?NOT AT ALL TOTAL SCORE0 29-YEAR-OLD FEMALE IN FOR CHRONIC PAIN FOLLOW-UP. SHE RATES HER PAIN CURRENTLY AT A 9 OUT OF 10 AND DESCRIBES IT ACHING, BURNING, CONTINUOUS, TENDER, THROBBING, AND SHOOTING. PATIENT WAS STARTED ON LYRICA 75 MG DAILY AT LAST CLINIC VISIT HOWEVER SHE WAS INCARCERATED AND COULD NOT CONTINUE THAT MEDICATION. GENERAL: -. FALL RISK SCREENING: SCREENING : NO FALLS REPORTED IN THIS YEAR. PAIN SCREENING: PATIENT HAS A COMPLAINT OF ACUTE OR CHRONIC PAIN :YES LOCATION OF PAIN:NECK PAIN GOES INTP THE RIGHT EYES INTENSITY OF PAIN (SCALE OF 1 TO 10):9 WHAT DOES YOUR PAIN FEEL LIKE:ACHING, BURNING, CONTINOUS, TENDER, THROBBING, SHOOTING DURATION:CONTINOUS, CONSTANT, ALL DAY PAIN IS INCREASED BY:OTHERS NOT SURE PAIN IS DECREASED BY:OTHERS STATED THAT NOTHING IS HELPING NURSING NOTE: -. PAIN CENTER INTAKE QUESTIONS: DO YOU HAVE A HISTORY OF MRSA? :YES HAS HAD MRSA IN THE PAST, WITH REOCCURENCES, BUT NOT PRESENTLY DO YOU TAKE A BLOOD THINNERS? :NO DO YOU HAVE ANY BLEEDING DISORDERS? :NO ANY NEW NUMBNESS OR WEAKNESS IN YOUR LEGS OR ARMS? :YES "RESTLESS ARMS" ANY PACEMAKER,DEFIBRILLATOR, OR DORSAL COLUMN STIMULATOR? :NO DO YOU HAVE ANY RASHES OR OPEN SORES? :NO ARE YOU ALLERGIC TO IV DYE? :NO ARE YOU DIABETIC? :NO ANY NEW PROBLEMS WITH YOUR MEDICATIONS? :NO HAVE YOU RECEIVED A VACCINE IN THE PAST 30 DAYS? :NO DO YOU PLAN TO RECEIVE A VACCINE IN THE NEXT 21 DAYS? :NO DO YOU NEED ANY PRESCRIPTION? :NO NOT SURE OF LYRICA DO YOU TAKE ANY IMMUNOSUPPRESSIVE MEDICATIONS? :NO CURRENT MEDICATIONS TAKING FLUTICASONE PROPIONATE 50 MCG/ACT SUSPENSION INSTILL TWO SPRAYS IN EACH NOSTRIL ONCE DAILY NASAL TAKING MUPIROCIN 2 % OINTMENT 1 APPLICATION EXTERNALLY THREE TIMES A DAY TAKING TRIAMCINOLONE ACETONIDE 0.1 % CREAM APPLY TOPICALLY TO THE AFFECTED AREA TWICE DAILY EXTERNAL TWICE A DAY TAKING ONDANSETRON HCL 4 MG TABLET 1 TABLET ORALLY ONCE A DAY NEEDED FOR NAUSEA TAKING PROMETHAZINE HCL 25 MG TABLET 1 TABLET NEEDED ORALLY EVERY 12 HRS TAKING CETIRIZINE HCL 10 MG TABLET 1 TABLET ORALLY ONCE A DAY TAKING TIZANIDINE HCL 2 MG TABLET 1 TABLET NEEDED ORALLY TWICE A DAY TAKING DULOXETINE HCL 60 MG CAPSULE DELAYED RELEASE PARTICLES 1 CAPSULE ORALLY ONCE A DAY TAKING VENTOLIN HFA 108 (90 BASE) MCG/ACT AEROSOL SOLUTION INHALE TWO PUFFS BY MOUTH FOUR TIMES DAILY NEEDED INHALATION TAKING ZONISAMIDE 100 MG CAPSULE 1 CAPSULE ORALLY ONCE A DAY TAKING PRAZOSIN HCL 2 MG CAPSULE 1 CAPSULE AT BEDTIME ORALLY ONCE A DAY TAKING SEROQUEL 100 MG TABLET 1 TABLET AT BEDTIME ORALLY ONCE A DAY TAKING LYRICA 75 MG CAPSULE 1 CAPSULE ORALLY ONCE A DAY TAKING SINGULAIR 10 MG TABLET 1 TABLET ORALLY ONCE A DAY TAKING BUSPIRONE HCL 15 MG TABLET 1 TABLET ORALLY TWICE A DAY NEEDED NOT-TAKING TRAZODONE HCL 50 MG TABLET 1 TABLET AT BEDTIME NEEDED ORALLY ONCE A DAY NOT-TAKING GABAPENTIN 400 MG CAPSULE TAKE ONE CAPSULE BY MOUTH THREE TIMES DAILY ORAL NOT-TAKING NORTRIPTYLINE HCL 10 MG CAPSULE TAKE ONE TABLET BY MOUTH EVERY NIGHT ORAL NOT-TAKING FLUCONAZOLE 150 MG TABLET 1 TABLET ORALLY ONE TABLET NOW AND THEN ONE TABLET IN 3 DAYS NOT-TAKING METRONIDAZOLE 500 MG TABLET 1 TABLET ORALLY TWICE A DAY NOT-TAKING DULOXETINE HCL 30 MG CAPSULE DELAYED RELEASE PARTICLES 1 CAPSULE ORALLY ONCE A DAY NOT-TAKING CYMBALTA 60 MG CAPSULE DELAYED RELEASE PARTICLES 1 CAPSULE ORALLY ONCE A DAY NOT-TAKING DIFLUCAN 150 MG TABLET 1 TABLET ORALLY ONCE, MAY REPEAT IN 7 DAYS IF NEEDED MEDICATION LIST REVIEWED AND RECONCILED WITH THE PATIENT PAST MEDICAL HISTORY MRSA INFECTION NEUROPATHY ANXIETY ASTHMA ARTHRITIS FIBROMYALGIA- DIAGNOSED 07/2019, ON LYRICA FROM PAIN CLINIC 08/2019 INSOMNIA W/ NIGHTMARES CHRONIC NECK PAIN OCCIPITAL NEURALGIA- SUPPOSED TO 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, REFERRED TO RHEUMATOLOGY 02/2020 CARPAL TUNNEL SYNDROME- RIGHT SIDE DEPRESSION OCD HISTRIONIC PERSONALITY DISORDER PTSD BIPOLAR DISORDER ALLERGIES LATEX (FOR ALLERGY USE ONLY): RASH - ALLERGY BANANAS, ORANGES, STRAWBERRIES, RED SAUCES, CUCUMBE: RASH - ALLERGY TOPAMAX: SIDE EFFECTS SOCIAL HISTORY GENERAL: TOBACCO USE ARE YOU A:NONSMOKER LATEX QUESTIONNAIRE LATEX ALLERGY : HAVE YOU EVER DEVELOPED ANY TYPE OF REACTION AFTER HANDLING LATEX PRODUCTS SUCH RUBBER GLOVES, CONDOMS, DIAPHRAGMS, BALLOONS, SOCKS, OR UNDERWEAR?YES - PLEASE INDICATE :CONDOMS LATEX ALLERGY : HAVE YOU EVER DEVELOPED ANY TYPE OF REACTION DURING OR AFTER DENTAL APPOINTMENT, VAGINAL/RECTAL EXAMINATION, SURGICAL PROCEDURE, OR ANY OTHER EXPOSURE?NO LATEX RISK : HAVE YOU EVER HAD ANY DIFFICULTY BREATHING OR HIVES AFTER EATING OR HANDLING ANY FRUITS, OR VEGETABLES; SUCH KIWI, BANANAS, STONE FRUITS, OR CHESTNUTSYES - PLEASE INDICATE : KIWI, BANANAS LATEX RISK : DO YOU HAVE A PREVIOUS PERSONAL HISTORY OF MORE THAN NINE SURGERIES, SPINA BIFIDA, OR REPEATED CATHERIZATIONS? NO LATEX RISK : ARE YOU FREQUENTLY EXPOSED TO LATEX PRODUCTS IN YOUR OCCUPATION?NO DATE ASKED : 06/28/2020 ALCOHOL USE: NO. CAFFEINE CAFFEINE USE?YES 1-2 CUPS/DAY SEXUAL HX HAD SEX IN THE LAST 12 MONTHS (VAGINAL, ORAL, OR ANAL)?YES WITHMEN ONLY USE PROTECTION?NO LMP:04/28/2019 HAVE YOU EVER HAD AN STD?YES GC?YES CHLAMYDIA?YES HIV / HEP-C SCREENING HIV TEST OFFERED TO PATIENT:YES DATE OFFERED:04/28/2019 TEST ACCEPTED:NO HEP-C TEST OFFERED TO PATIENT:YES DATE OFFERED:04/28/2019 REASON:PATIENT DECLINED TEST ACCEPTED:NO REASON:PATIENT DECLINED BROCHURE PROVIDED TO PATIENTNO JAIN JAIN NO ZOROASTRIAN BELIEFS THAT WOULD IMPACT HEALTH CARE. 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 DIET: SIMILAR TO KETO. LESS THAN 2000 CALORIES A DAY. LITTLE SUGAR. EXERCISE: NO REGULAR EXERCISE. MARITAL STATUS: .. OTHERS AT HOME: 4 CHILDREN. - HAS THE PATIENT BEEN EDUCATED REGARDING HIS/HER PLAN OF CARE?YES HAS THE PATIENT BEEN EDUCATED REGARDING PAIN, THE RISK FOR PAIN, THE IMPORTANCE OF EFFECTIVE PAIN MANAGEMENT, AND THE PAIN ASSESSMENT PROCESS?YES ADVANCE DIRECTIVE ADVANCE DIRECTIVE DISCUSSED WITH PATIENT:YES PT STATES THAT SHE HAS NO HCP AT THIS TIME, DECLINES ASSISTANCE WITH PAPERWORK REVIEW OF SYSTEMS CONSTITUTIONAL: ANY RECENT FEVER NO . CHILLS NO . WEIGHT CHANGE OF UNKNOWN REASONS NO . GASTROENTEROLOGY: NEW UNEXPLAINABLE CHANGES IN BOWEL CONTROL NO . CONSTIPATION NO . GENITOURINARY: ANY NEW CHANGE IN BLADDER CONTROL? NO . NEUROLOGY: NEW ONSET DIZZINESS OR NEUROLOGICAL CHANGES NOT MENTIONED NO . NEW NUMBNESS OR PAIN PATTERNS NOT MENTIONED AND PERTINENT TO TODAY'S VISIT NO . CARDIOLOGY: NEW CHEST PRESSURE NO . PATIENT DENIES NO . RESPIRATORY: UNEXPLAINABLE COUGH NO . NEW SHORTNESS OF BREATH NO . VITAL SIGNS WT 216.0 LBS, HT 68 IN, BMI 32.84 INDEX, BP 113/61 MM HG, HR 77 /MIN, RR 18 /MIN, TEMP 97.0 F, OXYGEN SAT % 100%, SAFE IN ENV? (Y/N) YES, NA INITIALS AW 1110T.JAZZ CARLIN. EXAMINATION GENERAL EXAMINATION: GENERALNO ACUTE DISTRESS, WELL NOURISHED AND HYDRATED. PSYCHAPPROPRIATE MOOD AND AFFECT . NECK:POINT TENDER BILATERAL NECK AND BILATERAL SHOULDERS, SURROUNDING SKIN SHOWS NO ERYTHEMA, ECCHYMOSIS, INCREASED WARMTH, AND/OR SKIN ERUPTIONS NOTED. BANDS OF RESTRICTIVE TISSUE NOTED OVER TRIGGER POINTS . LUNGS:CLEAR TO AUSCULTATION BILATERALLY, NO WHEEZES, RHONCHI, RALES. HEART:NO MURMURS, REGULAR RATE AND RHYTHM. ASSESSMENTS FIBROMYALGIA - M79.7 (PRIMARY) MYALGIA, OTHER SITE - M79.18 TREATMENT FIBROMYALGIA REFILL LYRICA CAPSULE, 75 MG, 1 CAPSULE, ORALLY, TWICE DAILY, 30 DAYS, 60, REFILLS 0 MEDICATION: NORCO TABLET 5MG/325MG ORALLY (HYDROCODONE/ACETAMINOPHEN) (ORDERED FOR 07/06/2020) MEDICATION: VALIUM TAB 5MG ORALLY (DIAZEPAM) (ORDERED FOR 07/06/2020) NOTES: 29-YEAR-OLD FEMALE IN FOR CHRONIC PAIN FOLLOW-UP. GIVEN PRESENTING SYMPTOMS AND RESULTS OF PHYSICAL EXAMINATION RECOMMENDED INCREASING LYRICA TO 75 MG TWICE A DAY, AND FURTHER RECOMMENDED BILATERAL NECK AND BILATERAL SHOULDER TRIGGER POINT INJECTIONS WITH POSTPROCEDURAL FOLLOW-UP. PATIENT HAS EXPRESSED UNDERSTANDING OF AND WAS IN AGREEMENT WITH TREATMENT PLAN. GIVEN TIME TO ASK QUESTIONS AND EXPRESS CONCERNS. , [employer] REGISTRY REVIEWED AND DEMONSTRATES COMPLLIANCE. (REF # [id number] ). CLINICAL NOTES: PREPROCEDURE AND PROCEDURE INFORMATION PRINTED AND PROVIDED TO PATIENT. PATIENT VERBALIZED UNDERSTANDING. NAMITA ULLOA MA. PROCEDURE CODES FA211 ESTABILISHED PATIENT [facility] CHARGE DISPOSITION & COMMUNICATION FOLLOW UP POSTPROCEDURE (REASON: BILATERAL NECK AND BILATERAL SHOULDER TRIGGER POINT INJECTIONS) ELECTRONICALLY SIGNED BY ANASTASIA YARBROUGH ON 06/29/2020 AT 09:10 AM EDT DISCLAIMER : THIS IS A VISIT SUMMARY EXTRACTED FROM THE [employer] CHART. IT IS NOT A COPY OF THE [employer] PROGRESS NOTE. MTDD
== END ==
LOC: M PAIN 11:00
PROVIDERS: ATTEND Family Medicine
DX: M79.7 Fibromyalgia (principal); M79.18 Myalgia, other site; Z86.14 Personal history of Methicillin resistant Staphylococcus aureus infection; J45.909 Unspecified asthma, uncomplicated; G47.00 Insomnia, unspecified; Z86.59 Personal history of other mental and behavioral disorders; Z88.8 Allergy status to other drugs, medicaments and biological substances; Z91.018 Allergy to other foods; Z91.040 Latex allergy status; Z79.899 Other long term (current) drug therapy

== ENCOUNTER → 2020-07-06 | Outpatient (CLI) | payer OTHER | LOC: M LABSMTC 13:19 | PROVIDERS: ATTEND Anesthesiology | DX: Z20.828 Contact with and (suspected) exposure to other viral communicable diseases (principal) ==

== ENCOUNTER → 2020-08-05 | Outpatient (REF) | payer OTHER ==
[~2020-08-05] MED LIST changes: +GABA-283; -GABA-845
[2020-08-05 15:56] LABS: APPEARANCE, URINE CLEAR (CLEAR); BACTERIA, URINE AUTO NEGATIVE (NEGATIVE); BILIRUBIN, URINE AUTO NEGATIVE (NEGATIVE); BLOOD, URINE BLOOD NEGATIVE (NEGATIVE); COLOR, URINE STRAW (YELLOW); GLUCOSE, URINE (UA) AUTO NEGATIVE (NEGATIVE); KETONE, URINE AUTO NEGATIVE (NEGATIVE); LEUKOCYTE ESTERASE, URINE AUTO NEGATIVE (NEGATIVE); NITRITE, URINE AUTO NEGATIVE (NEGATIVE); PROTEIN, URINE AUTO NEGATIVE (NEGATIVE); RBC, URINE AUTO 1 /HPF (0-3); SPECIFIC GRAVITY URINE AUTO 1.009 (1.002-1.035); SQUAMOUS EPITHELIAL CELL UR AU 0 /HPF (0-6); UROBILINOGEN, URINE AUTO 0.2 mg/dL (0.0-2.0); WBC, URINE AUTO 0 /HPF (0-3)
== END ==
LOC: M LAB REF 15:40
PROVIDERS: ATTEND Physician Assistant
DX: R30.0 Dysuria (principal)

== ENCOUNTER → 2021-03-16 | Outpatient (CLI) | payer OTHER ==
[~2021-03-16] MED LIST changes: +ACET-683 PO; +ACET500P3 PO; +CEFD300C41 PO; +IBUP100S16 PO; +NAPR-885 PO; +OXYC-517 PO; +ROXI1TAB2 PO; +ZOFR4TAB16 PO
== END ==
LOC: M LABSMTC 12:14
PROVIDERS: ATTEND Anesthesiology
DX: Z01.812 Encounter for preprocedural laboratory examination (principal); Z20.822 Contact with and (suspected) exposure to COVID-19

== ENCOUNTER 2021-03-17 14:26 | Day surgery (SDC) | payer OTHER ==
[~2021-03-17] VITALS: Ht 172.7 cm; Wt 95.3 kg
[~2021-03-17 14:26] MED LIST changes: +LR 1,000 ML IV ONE
[2021-03-17] MEDS ORDERED: EPINEPHrine INJ 1 MG/ML 1ML AMP XX ONE (17:40)
[2021-03-17] MEDS ORDERED: dexameTHASONE 10MG/1ML VIAL PRES.FREE (J1100 PER 1MG) XX ONE (17:40)
[2021-03-17] MEDS ORDERED: ROPIvacaine 0.5% 30ML INJECTION (J2795 PER 1MG) XX ONE (17:40)
[2021-03-17] MEDS ORDERED: LIDOCAINE 1% MDV 20ML VIAL XX ONE (17:40)
[2021-03-17] MEDS: MIDAZOLAM INJ 2MG/2ML VIAL (J2250 PER 1MG) IV PRN (18:03)
[2021-03-17] MEDS: fentaNYL 100 MCG/2 ML INJECTION (J3010) IV PRN ×6 (18:03→21:47)
[2021-03-17] MEDS ORDERED: BUPIVACAINE HCL 0.25% 30ML VIAL As Ordered ONE (19:00)
[2021-03-17] MEDS ORDERED: fentaNYL 100 MCG/2 ML INJECTION (J3010) As Ordered ONE ×2 (19:02→21:29)
[2021-03-17] MEDS ORDERED: propofoL 200 MG/20 ML VIAL As Ordered ONE (19:02)
[2021-03-17] MEDS ORDERED: ONDANSETRON 4MG/2ML VIAL As Ordered ONE (19:02)
[2021-03-17] MEDS ORDERED: dexameTHASONE 4 MG/ML 1ML VIAL (J1100 PER 1MG) As Ordered ONE (19:02)
[2021-03-17] MEDS ORDERED: METOCLOPRAMIDE INJ 10MG/2ML VIAL (J2765 PER 1) As Ordered ONE (19:02)
[2021-03-17] MEDS ORDERED: LIDOCAINE 2% 100MG/5ML SDV (FOR ANES.) As Ordered ONE (19:02)
[2021-03-17] MEDS ORDERED: MIDAZOLAM INJ 2MG/2ML VIAL (J2250 PER 1MG) As Ordered ONE ×2 (19:03→21:55)
[2021-03-17] MEDS ORDERED: ROXI1TAB2 PO (19:23)
[2021-03-17] MEDS ORDERED: ZOFR4TAB16 PO (19:24)
[2021-03-17] MEDS ORDERED: ceFAZolin 1GM VIAL (J0690 PER 500MG) As Ordered ONE (19:31)
[2021-03-17] MEDS ORDERED: LABETALOL 100MG/20ML VIAL As Ordered ONE (19:56)
[2021-03-17] MEDS ORDERED: ACETAMINOPHEN 1000MG 100ML IV BTL (OFIRMEV) (J0131 PER 10MG) As Ordered ONE (21:19)
[2021-03-17] MEDS ORDERED: KETOROLAC 60MG 2ML VIAL As Ordered ONE (21:19)
[2021-03-17] MEDS ORDERED: oxyCODONE 5MG TAB PO PRN (21:45)
[2021-03-17] MEDS ORDERED: LR 1,000 ML IV SCH (21:45)
[2021-03-17] MEDS ORDERED: METOCLOPRAMIDE INJ 10MG/2ML VIAL (J2765 PER 1) IV PRN (21:45)
[2021-03-17] MEDS ORDERED: ONDANSETRON 4MG/2ML VIAL IV PRN (21:45)
[2021-03-17] MEDS ORDERED: HYDROmorphone HCL 2MG/ML 1ML VIAL As Ordered ONE (21:55)
[2021-03-17] MEDS: MIDAZOLAM INJ 2MG/2ML VIAL (J2250 PER 1MG) IV SCH ×2 (21:58→22:12)
[2021-03-17] MEDS: HYDROMORPHONE HCL 0.5 MG/ 0.5 ML SYRINGE (J1170 PER 1) IV PRN ×2 (22:00→22:09)
[2021-03-17 23:50] VITALS: BP 116/59
== END 2021-03-17 22:59 | disposition home or self-care (01) ==
LOC: M SDC 14:26
PROVIDERS: ATTEND Orthopaedic Surgery Hand Surgery
DX: S82.852A Displaced trimalleolar fracture of left lower leg, initial encounter for closed fracture (principal); X58.XXXA Exposure to other specified factors, initial encounter; Y92.89 Other specified places as the place of occurrence of the external cause; Y93.9 Activity, unspecified; Y99.9 Unspecified external cause status; M79.7 Fibromyalgia; F31.9 Bipolar disorder, unspecified; F32.9 Major depressive disorder, single episode, unspecified; F41.9 Anxiety disorder, unspecified; G43.909 Migraine, unspecified, not intractable, without status migrainosus; J45.909 Unspecified asthma, uncomplicated; Z91.040 Latex allergy status; Z91.018 Allergy to other foods
CPT/HCPCS: 27814; 64445; 76000; 81025; C1713; J0131; J0171; J0690; J1100; J1885; J2250; J2405; J2765; J2795; J3010

== ENCOUNTER → 2021-04-03 | Outpatient (CLI) | payer OTHER ==
[~2021-04-03] MED LIST changes: -LR 1,000 ML IV ONE
== END ==
LOC: M SOG 03-31 10:38
PROVIDERS: ATTEND Orthopaedic Surgery Hand Surgery
DX: S82.852A Displaced trimalleolar fracture of left lower leg, initial encounter for closed fracture (principal); X58.XXXA Exposure to other specified factors, initial encounter; Y92.9 Unspecified place or not applicable; Y93.9 Activity, unspecified; Y99.9 Unspecified external cause status

== ENCOUNTER → 2021-04-18 | Outpatient (CLI) | payer OTHER | LOC: M SOG 13:16 | PROVIDERS: ATTEND Orthopaedic Surgery Hand Surgery | DX: S82.852D Displaced trimalleolar fracture of left lower leg, subsequent encounter for closed fracture with routine healing (principal) ==

== ENCOUNTER → 2021-05-23 | Outpatient (CLI) | payer OTHER | LOC: M SOG 11:38 | PROVIDERS: ATTEND Physician Assistant | DX: S82.852A Displaced trimalleolar fracture of left lower leg, initial encounter for closed fracture (principal); Z53.9 Procedure and treatment not carried out, unspecified reason ==

== ENCOUNTER → 2021-06-01 | Outpatient (RCR) | payer OTHER | LOC: M PT 10:03 | DX: S82.852A Displaced trimalleolar fracture of left lower leg, initial encounter for closed fracture (principal); X58.XXXA Exposure to other specified factors, initial encounter; Y92.9 Unspecified place or not applicable; Y93.9 Activity, unspecified; Y99.9 Unspecified external cause status ==

== ENCOUNTER → 2021-06-06 | Outpatient (CLI) | payer OTHER | LOC: M SOG 11:01 | PROVIDERS: ATTEND Physician Assistant | DX: S82.852A Displaced trimalleolar fracture of left lower leg, initial encounter for closed fracture (principal); M79.89 Other specified soft tissue disorders; X58.XXXA Exposure to other specified factors, initial encounter; Y92.9 Unspecified place or not applicable; Y93.9 Activity, unspecified; Y99.9 Unspecified external cause status ==

== ENCOUNTER 2021-06-07 12:09 | Outpatient (RCR) | payer OTHER | END 2021-07-01 | LOC: M PT 12:09 | DX: S82.855D Nondisplaced trimalleolar fracture of left lower leg, subsequent encounter for closed fracture with routine healing (principal) ==

== ENCOUNTER → 2021-07-06 | Outpatient (CLI) | payer OTHER, SELFPAY | LOC: M SOG 08:28 | PROVIDERS: ATTEND Physician Assistant | DX: S82.852D Displaced trimalleolar fracture of left lower leg, subsequent encounter for closed fracture with routine healing (principal); M19.072 Primary osteoarthritis, left ankle and foot; M79.89 Other specified soft tissue disorders ==

== ENCOUNTER → 2021-07-12 | Outpatient (REF) | payer OTHER, SELFPAY ==
[2021-07-12 13:16] LABS: APPEARANCE, URINE CLEAR (CLEAR); BACTERIA, URINE AUTO NEGATIVE (NEGATIVE); BILIRUBIN, URINE AUTO NEGATIVE (NEGATIVE); BLOOD, URINE BLOOD NEGATIVE (NEGATIVE); COLOR, URINE YELLOW (YELLOW); GLUCOSE, URINE (UA) AUTO NEGATIVE (NEGATIVE); KETONE, URINE AUTO TRACE mg/dL (NEGATIVE); LEUKOCYTE ESTERASE, URINE AUTO NEGATIVE (NEGATIVE); MUCUS, URINE SMALL (NEGATIVE); NITRITE, URINE AUTO NEGATIVE (NEGATIVE); PROTEIN, URINE AUTO NEGATIVE (NEGATIVE); RBC, URINE AUTO 1 /HPF (0-3); SPECIFIC GRAVITY URINE AUTO 1.026 (1.002-1.035); SQUAMOUS EPITHELIAL CELL UR AU 0 /HPF (0-6); UROBILINOGEN, URINE AUTO 0.2 mg/dL (0.0-2.0); WBC, URINE AUTO 0 /HPF (0-3)
[2021-07-12 17:28] LABS: GC DNA AMPLIFICATION NEGATIVE (NEGATIVE)
== END ==
LOC: M LAB REF 12:19
PROVIDERS: ATTEND Physician Assistant
DX: Z11.3 Encounter for screening for infections with a predominantly sexual mode of transmission (principal); M79.10 Myalgia, unspecified site

== ENCOUNTER → 2021-12-15 | Outpatient (CLI) | payer OTHER | LOC: M PAIN 13:00 | PROVIDERS: ATTEND Nurse Practitioner Family | DX: M79.10 Myalgia, unspecified site (principal); M54.2 Cervicalgia; G89.29 Other chronic pain; Z86.14 Personal history of Methicillin resistant Staphylococcus aureus infection; J45.909 Unspecified asthma, uncomplicated; Z86.59 Personal history of other mental and behavioral disorders; Z88.8 Allergy status to other drugs, medicaments and biological substances; Z91.018 Allergy to other foods; Z91.040 Latex allergy status; Z79.899 Other long term (current) drug therapy ==

== ENCOUNTER → 2025-02-12 | Outpatient (REF) | payer OTHER ==
[~2025-02-12] MED LIST changes: +CEFD1CAP9 PO; -CEFD300C41 PO; -GABA-283; +GABA-284; -MEDR150I10; +MEDR150I13
[2025-02-12 21:32] LABS: Trichomonas vaginalis (AMP) NOT DETECTED (NEGATIVE)
[2025-02-12 21:56] LABS: GC DNA AMPLIFICATION NEGATIVE (NEGATIVE)
== END ==
LOC: M SFHCWAGY 17:03
PROVIDERS: ATTEND Physician Assistant
DX: Z11.3 Encounter for screening for infections with a predominantly sexual mode of transmission (principal); N89.8 Other specified noninflammatory disorders of vagina